=== PATIENT | female | born 1960 | race Caucasian/White ===

== ENCOUNTER 2024-11-07 11:08 | Emergency (ER) | payer BC, MEDICARE ==
[~2024-11-07] VITALS: Ht 152.4 cm; Wt 59.1 kg
[2024-11-07 13:11] VITALS: TEMP 98
[2024-11-07 13:15] VITALS: BP 124/71; PULSE 65; RESP 16; O2SAT 98
== END 2024-11-07 13:32 | disposition home or self-care (01) ==
LOC: EMS 11:08
DX: S09.90XA Unspecified injury of head, initial encounter (principal); R11.0 Nausea; R20.2 Paresthesia of skin; W22.8XXA Striking against or struck by other objects, initial encounter; Y93.89 Activity, other specified; Y92.89 Other specified places as the place of occurrence of the external cause; Y99.8 Other external cause status
CPT/HCPCS: 70450; 72125; 99284